=== PATIENT | female | born 1960 | race Caucasian/White ===

== ENCOUNTER 2021-11-30 02:05 | Emergency (ER) | payer BC, SELFPAY ==
[2021-11-30 02:16] VITALS: BP 111/68; PULSE 122; RESP 22; TEMP 36.7; O2SAT 96
--- NOTE | 2021-11-30 02:17 | W.ED.CHESTPA ---
HPI - Chest Pain General: Chief Complaint: Chest Pain Stated Complaint: cp Time Seen by Provider: 11/30/21 02:16 History of Present Illness: Ms. Mcdonald is a 61-year-old lady with significant past medical history of tobaccoism, hypertension, COPD with intermittent oxygen use, and tachyarrhythmia who presents to the emergency department due to chest pain associated with abnormal heart rate. She reports being at her baseline health and getting ready for bed yesterday evening when she went to take her evening medications she noticed chest pain. She had pressure in her chest associated with rapid heartbeat. At the highest heart rates were in the low 200s. She did note mild lightheadedness, shortness of breath, cold sweats, nausea with this. She tried her medications without significant relief. Symptoms upon arrival have mildly improved however she still does have mild chest discomfort. She has had a few episodes in the past however reports arrhythmias started at the end of July of this year. She has had 1 appointment with cardiology here and has a arrhythmia monitor on at this time. Apparently she was contacted and told to come to the emergency department due to the arrhythmia. Of note, apparently the patient was on diltiazem and had the dose increased at her cardiology appointment however she reports that this was correlated with a fairly severe pneumonia. She subsequently was completely taken off Cardizem and placed on losartan by her primary care provider. Onset (ago): hour(s) Prior episodes: Yes Onset: during rest Severity: severe Exacerbating factors: exertion Associated symptoms: Reports diaphoresis, dyspnea, nausea and palpitations Review of Systems General: Reports: 10 or more systems reviewed and unremarkable except in HPI and below Const: Reports: diaphoresis Card: Reports: palpitations Resp: Reports: dyspnea GI: Reports: nausea PFSH ED PFSH: Medical History Chronic headache COPD (chronic obstructive pulmonary disease) Diverticulosis GERD (gastroesophageal reflux disease) HTN (hypertension) Postmenopausal HRT (hormone replacement therapy) Surgical History S/P appendectomy S/P hysterectomy Status post delivery Family History Grandmother Diabetes Sister Migraine Father Hypertension Diabetes Cancer Social History Smoking and tobacco status: current every day smoker (1.5 ppd) Physical Exam Const: COMMON NORMALS: alert GENERAL APPEARANCE: cooperative, well developed and ill appearing (Somewhat) HENMT: COMMON NORMALS: normocephalic and atraumatic HEAD & SCALP: normocephalic and atraumatic Eye: COMMON NORMALS: conjunctivae normal CONJUNCTIVA: Yes conjunctivae normal SCLERA: sclerae normal Neck/C-Spine: COMMON NORMALS: supple GENERAL: Yes trachea midline Resp: COMMON NORMALS: normal respiratory effort EFFORT & INSPECTION: Yes able to speak in complete sentences Cardio: COMMON NORMALS: regular rhythm RATE: tachycardic RHYTHM: regular rhythm GI: COMMON NORMALS: Soft to palpation PALPATION: Yes Soft to palpation and No Tenderness to palpation present (GI) PERCUSSION: normal to percussion Extremity: GENERAL: Yes normal exam except as noted and No edema Neuro: COMMON NORMALS: moves all extremities SENSORIUM/ORIENTATION: Yes alert and No Orientation impaired Psych: COMMON NORMALS: mental status grossly normal and Normal thought process present THOUGHT PROCESS: Normal thought process present Course ED course: - Patient was seen and evaluated by me at bedside - Patient placed on cardiac monitors, IV access obtained - Initial evaluation notable for exam as above - Labs and xrays personally interpreted by me -Aspirin and fluids given. RT treatment given - Labs notable for no significant hematologic abnormality. Metabolic panel notable for mildly elevated creatinine. There is transaminitis of uncertain etiology. Delta troponin is positive. D-dimer elevated. - Imaging notable for no lobar consolidation or pneumothorax on chest x-ray. Given elevated lipase and transaminitis as well as elevated D-dimer CT imaging of chest abdomen and pelvis obtained. CT angio chest negative for pulmonary embolism. CT abdomen pelvis without acute pathology. - Upon serial reexamination after treatment the patient was mildly improved - Based on patient history, evaluation, and testing as interpreted the most likely cause of the patient's condition is NSTEMI - The results of ED evaluation were discussed with the patient including need for admission for NSTEMI. The patient adamantly refused admission despite discussion of risks and benefits. - The patient is oriented to person, place, and time, has the capacity to make decisions regarding the medical care offered. The patient speaks coherently and exhibits no evidence of having an altered level of consciousness or alcohol or drug intoxication to a point that would impair judgment. She responds knowingly to questions about recommended treatment and exhibits goal oriented and logical thought process. She cannot articulates back the risks explained to her including permanent debility, , or worse. She understands that she may return to the emergency department for any reason at any time. - Patient left emergency department with steady gait AGAINST MEDICAL ADVICE. Vital Signs: Vital signs: Vital Signs Temperature 98.0 F 11/30/21 02:16 Pulse Rate 92 11/30/21 06:00 Respiratory Rate 20 H 11/30/21 06:00 Blood Pressure 143/114 11/30/21 06:00 Pulse Oximetry 100 11/30/21 06:00 MDM - Chest Pain Medical Decision Making 61-year-old lady with history of arrhythmia presenting with tachyarrhythmia. Patient found to have NSTEMI of uncertain etiology. It is possible that it was demand ischemia secondary to prolonged tachycardia however other etiologies must be evaluated. Unfortunately, however, the patient left AGAINST MEDICAL ADVICE. Medical Records I reviewed the patient's medical records. Lab Data I reviewed the patient's lab results. : 11/30/21 02:15 11/30/21 02:15 Radiology Impressions Chest X-Ray 11/30/21 02:37 IMPRESSION: No acute cardiopulmonary abnormality. Chest/Abdomen/Pelvis CT 11/30/21 02:52 IMPRESSION: 1. No acute findings. 2. Two 5-6 mm pulmonary nodules are seen. For patients at low risk (minimal or absent history of smoking and of other known risk factors), recommend CT Chest at 3-6 months, then consider CT Chest at 18-24 months. For patients at high risk (history of smoking or of other known risk factors), recommend CT IMPRESSION: No acute findings. COMMENTS: Consistent with the [employer]'s Incidental Findings Committee white paper (J Am Nidia Radiol 2018): Any incidental renal lesion less than 1 cm or classified as too small to characterize, or any incidental cystic renal lesion characterized as simple-appearing, is likely benign. No follow-up imaging is recommended for these lesions per consensus recommendations based on imaging criteria. Laboratory Results WBC 5.7 10^3/uL (4.0-10.0) 11/30/21 02:15 RBC 4.23 10^6/uL (4.1-5.3) 11/30/21 02:15 Hgb 12.1 g/dL (11.5-15.3) 11/30/21 02:15 Hct 40.2 % (37.0-47.0) 11/30/21 02:15 MCV 95.0 fl (81-99) 11/30/21 02:15 MCH 28.6 pg (28.0-34.0) 11/30/21 02:15 MCHC 30.1 g/dL (30.0-36.0) 11/30/21 02:15 RDW 14.6 % (12.1-15.1) 11/30/21 02:15 Plt Count 278 10^3/cmm (130-400) 11/30/21 02:15 MPV 9.7 fL (7.4-10.4) 11/30/21 02:15 Neut % (Auto) 68.1 % 11/30/21 02:15 Lymph % (Auto) 23.2 % 11/30/21 02:15 Christian % (Auto) 6.0 % 11/30/21 02:15 Eos % (Auto) 1.6 % 11/30/21 02:15 Baso % (Auto) 0.7 % 11/30/21 02:15 Neut # (Auto) 3.89 10^3/uL (1.8-7.7) 11/30/21 02:15 Lymph # (Auto) 1.3 10^3/uL (0.8-4.8) 11/30/21 02:15 Christian # (Auto) 0.3 10^3/uL (0.2-0.9) 11/30/21 02:15 Eos # (Auto) 0.1 10^3/uL (0.0-0.8) 11/30/21 02:15 Baso # (Auto) 0.0 10^3/uL (0.0-0.1) 11/30/21 02:15 Nucleated RBC % (auto) 0 % 11/30/21 02:15 Nucleated RBCs # 0.0 /100WBC 11/30/21 02:15 PT 12.20 SECONDS (12.1-14.9) 11/30/21 02:15 INR 0.88 (0.8-1.2) 11/30/21 02:15 APTT 31.7 SECONDS (23.9-36.7) 11/30/21 02:15 D-Dimer 0.67 ug/mIFEU (0-0.59) H 11/30/21 02:15 Sodium 138 mmol/L (136-145) 11/30/21 02:15 Potassium 3.8 mmol/L (3.5-5.1) 11/30/21 02:15 Chloride 101 mmol/L (98-107) 11/30/21 02:15 Carbon Dioxide 24 mmol/L (22-29) 11/30/21 02:15 Anion Gap 16.8 (5-19) 11/30/21 02:15 BUN 13 mg/dL (8-23) 11/30/21 02:15 Creatinine 1.0 mg/dL (0.5-0.9) H 11/30/21 02:15 GFR Calculation 56.0 mL/min (90-130) L 11/30/21 02:15 Glucose 178 mg/dL (65-115) H 11/30/21 02:15 Calculated Osmolality 291 mOsm/kg (285-295) 11/30/21 02:15 Calcium 9.7 mg/dL (8.5-10.5) 11/30/21 02:15 Total Bilirubin 0.2 mg/dL (0.15-1.2) 11/30/21 02:15 AST 62 U/L (0-32) H 11/30/21 02:15 ALT 46 U/L (0-33) H 11/30/21 02:15 Alkaline Phosphatase 132 IU/L (35-105) H 11/30/21 02:15 Troponin T Baseline 28 ng/L (0-10) H 11/30/21 02:15 Troponin T 120 Minute 51.53 ng/L (0-10) H 11/30/21 05:00 Delta Troponin T 23.53 ABS# (0-10) H* 11/30/21 05:00 NT-Pro-B Natriuret Pep 585 pg/mL (0-125) H 11/30/21 02:15 Total Protein 7.2 g/dL (6.6-8.7) 11/30/21 02:15 Albumin 4.2 g/dL (3.5-5.2) 11/30/21 02:15 Globulin 3.0 g/dL (1.3-4.6) 11/30/21 02:15 Lipase 67 U/L (13-60) H 11/30/21 02:15 TSH 4.05 uIU/mL (0.27-4.20) 11/30/21 02:15 Discharge Plan Discharge Patient Disposition: Left Against Medical Advice Clinical Impression: Non-ST elevation (NSTEMI) myocardial infarction, Tachyarrhythmia Condition: Stable Prescriptions: No Action albuterol sulfate [ProAir HFA] 90 mcg/actuation HFA aerosol inhaler 2 puff inhalation Q6H PRN0RF amitriptyline 100 mg tablet 200 mg PO .HS 0RF zpldamsbxb-kbkuvrweznnfz-uxmh 50-325-40 mg tablet 1 tab PO Q6H PRN0RF cholecalciferol (vitamin D3) 25 mcg (1,000 unit) capsule 1,000 unit PO DAILY 0RF clonidine HCl 0.1 mg tablet 0.1 mg PO TID PRN0RF fluticasone propionate [Flonase Allergy Relief] 50 mcg/actuation spray,suspension 1 spray intranasal DAILY 0RF Rx Instructions: administer into each nostril furosemide 40 mg tablet 40 mg PO DAILY 0RF hydrocodone-acetaminophen 5-325 mg tablet 1 tab PO BID PRN0RF Dulera 200-5 mcg/actuation HFA aerosol inhaler 2 puff inhalation BID 0RF pantoprazole 40 mg tablet,delayed release (DR/EC) 40 mg PO BID 0RF promethazine 25 mg tablet 25 mg PO Q6H PRN0RF Nurtec ODT 75 mg tablet,disintegrating 75 mg PO DAILY PRN0RF vitamin B complex [B Complex-Vitamin B12] Tablet 1 tab PO DAILY 0RF zolpidem [Ambien] 10 mg tablet 10 mg PO .HS 0RF aspirin [Adult Low Dose Aspirin] 81 mg tablet,delayed release (DR/EC) 81 mg PO DAILY 0RF losartan 100 mg tablet 100 mg PO DAILY Qty: 90 0RF flecainide 50 mg tablet 50 mg PO Q12H Qty: 60 6RF Referrals: April Haynes DO [Primary Care Provider] - Discharge Diet: Usual diet Discharge Activity: Resume usual activity Activity Restrictions/Additional Instructions: Thank you for visiting the emergency department. You were seen and evaluated for chest pain and abnormal heart rhythm. You are found to have elevation in your troponin which means you are having a heart attack. The exact cause of this heart attack is unclear as discussed. I strongly recommend admission to the hospital for further cardiac evaluation which you are declining. You are choosing to leave AGAINST MEDICAL ADVICE. I have strong concerns that you may suffer permanent debility, , or worse related to your decision. Please contact your physician first thing in the morning. 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 You may return to the emergency department for any reason at any time. Stand Alone Forms: Against Medical Advice Coding Level of Care Code ED Dynamics Ax Solution Architect for Chg Fwd Exam Comprehensive
[2021-11-30 02:20] VITALS: BP 138/72; PULSE 117; RESP 22; O2SAT 92
--- NOTE | 2021-11-30 02:37 | XRR_ITS ---
PROCEDURE INFORMATION: Exam: XR Chest Exam date and time: 11/30/2021 2:46 AM Age: 61 years old Clinical indication: Dyspnea; Sternal or substernal pain; Additional info: Chest pain TECHNIQUE: Imaging protocol: XR of the chest. Views: 1 view. COMPARISON: No relevant prior studies available. FINDINGS: Lungs: Unremarkable. No consolidation. Pleural spaces: Unremarkable. No pleural effusion. No pneumothorax. Heart/Mediastinum: Moderate hiatal hernia. Bones/joints: Unremarkable. XR/XR chest 1V portable [id number] IMPRESSION: No acute cardiopulmonary abnormality.
--- NOTE | 2021-11-30 02:37 | ECG_ITS ---
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 Measurements Intervals [place] Rate: 126 P: 81 [place]: 104 QRS: 93 QRSD: 79 T: 60 QT: 326 QTc: 474 Interpretive Statements SINUS TACHYCARDIA WITH SHORT [place] INTERVAL WITH FREQUENT SUPRAVENTRICULAR PREMATURE COMPLEXES BORDERLINE RIGHT AXIS DEVIATION [QRS AXIS > 90] MODERATE ST DEPRESSION [0.05+ mV ST DEPRESSION] No previous ECG available for comparison Electronically Signed On 11-30-2021 17:14:06 CDT by Eleuterio Guadalupe M.D. [id number] f
[2021-11-30 02:43] LABS: Basophils % 0.7 %; Eosinophils # 0.1 10^3/uL (0.0-0.8); Eosinophils % 1.6 %; Hematocrit 40.2 % (37.0-47.0); Hemoglobin 12.1 g/dL (11.5-15.3); Lymphocytes # 1.3 10^3/uL (0.8-4.8); Lymphocytes % 23.2 %; Mean Corpuscular HGB Conc 30.1 g/dL (30.0-36.0); Mean Corpuscular Hemoglobin 28.6 pg (28.0-34.0); Mean Platelet Volume 9.7 fL (7.4-10.4); Monocytes # 0.3 10^3/uL (0.2-0.9); Neutrophils # 3.89 10^3/uL (1.8-7.7); Neutrophils % 68.1 %; Nucleated Red Blood Cells % 0 %; Platelet Count 278 10^3/cmm (130-400); Red Blood Count 4.23 10^6/uL (4.1-5.3); Red Cell Distribution Width 14.6 % (12.1-15.1); White Blood Count 5.7 10^3/uL (4.0-10.0)
[2021-11-30 02:48] LABS: INR 0.88 (0.8-1.2)
[2021-11-30 02:49] LABS: Partial Thromboplastin Time 31.7 SECONDS (23.9-36.7)
[2021-11-30 02:51] LABS: D Dimer 0.67 ug/mIFEU (0-0.59)
--- NOTE | 2021-11-30 02:52 | CTR_ITS ---
PROCEDURE INFORMATION: Exam: CTA Chest With Contrast Exam date and time: 11/30/2021 3:53 AM Age: 61 years old Clinical indication: Pain and abnormal findings; Abnormal lab test; Elevated lipase; Abdominal pain; Generalized; Abnormal diagnostic tests; Elevated d-dimer; Sternal or substernal pain; Prior surgery; Surgery date: 6+ months; Surgery type: Hyst; Additional info: Chest pain, tachy, elevated ddimer TECHNIQUE: Imaging protocol: Computed tomographic angiography of the chest with contrast. 3D rendering (Not supervised by radiologist): MIP and/or 3D reconstructed images were created by the technologist. Radiation optimization: All CT scans at this facility use at least one of these dose optimization techniques: automated exposure control; mA and/or kV adjustment per patient size (includes targeted exams where dose is matched to clinical indication); or iterative reconstruction. Contrast material: VISI; Contrast volume: 95 ml; Contrast route: INTRAVENOUS (IV); COMPARISON: CR (CHEST, ) 11/30/2021 2:46 AM RADIATION DOSE METRICS: Total DLP (mGy-cm): 1396.04 FINDINGS: Pulmonary arteries: Normal. No pulmonary emboli. Aorta: Unremarkable. No aortic aneurysm. No aortic dissection. Lungs: Moderate centrilobular emphysema. No focal airspace consolidation. There is a 6 mm right lower lobe pulmonary nodule on series 2, image 390. There is a 5 mm subpleural left upper lobe pulmonary nodule on series 2, image 157. Pleural spaces: Unremarkable. No pneumothorax. No pleural effusion. Heart: Heavy coronary artery calcification. Small pericardial effusion. Lymph nodes: Unremarkable. No enlarged lymph nodes. Diaphragm: Moderate hiatal hernia. Bones/joints: Unremarkable. No acute fracture. Soft tissues: Unremarkable. Chest at 3-6 months, then CT Chest at 18-24 months. (Reference: Joo) REFERENCES: Marlenehomary H, et al. Guidelines for Management of Incidental Pulmonary Nodules Detected on CT Images: From the Fleischner Society 2017. Radiology. 2017;284(1):228-243. PROCEDURE INFORMATION: Exam: CT Abdomen And Pelvis With Contrast Exam date and time: 11/30/2021 3:53 AM Age: 61 years old Clinical indication: Pain and abnormal findings; Abnormal lab test; Elevated lipase; Abdominal pain; Generalized; Abnormal diagnostic tests; Elevated d-dimer; Sternal or substernal pain; Prior surgery; Surgery date: 6+ months; Surgery type: Hyst; Additional info: Chest pain, tachy, elevated ddimer TECHNIQUE: Imaging protocol: Computed tomography of the abdomen and pelvis with contrast. Radiation optimization: All CT scans at this facility use at least one of these dose optimization techniques: automated exposure control; mA and/or kV adjustment per patient size (includes targeted exams where dose is matched to clinical indication); or iterative reconstruction. Contrast material: VISI; Contrast volume: 95 ml; Contrast route: INTRAVENOUS (IV); COMPARISON: CR (CHEST, ) 11/30/2021 2:46 AM RADIATION DOSE METRICS: Total DLP (mGy-cm): 1396.04 FINDINGS: Diaphragm: Moderate hiatal hernia. Liver: Focal fatty infiltration along the falciform ligament. Gallbladder and bile ducts: Normal. No calcified stones. No ductal dilation. Pancreas: Normal. No ductal dilation. Spleen: Normal. No splenomegaly. Adrenal glands: Normal. No mass. Kidneys and ureters: Bilateral renal cysts. No hydronephrosis. Stomach and bowel: Colonic diverticulosis without evidence of diverticulitis. No bowel obstruction. Appendix: No evidence of appendicitis. Intraperitoneal space: Unremarkable. No free air. No significant fluid collection. Vasculature: Mild burden of atherosclerotic plaque in the abdominal aorta and branch vessels. No aneurysm. Lymph nodes: Unremarkable. No enlarged lymph nodes. Urinary bladder: Unremarkable as visualized. Reproductive: Hysterectomy. Coarse calcifications in the right adnexa. Bones/joints: Unremarkable. No acute fracture. Soft tissues: Small fat containing periumbilical hernia. Coarse calcifications in the subcutaneous fat overlying the bilateral gluteal regions. CT/CT angio chest w abd pel w con IMPRESSION: 1. No acute findings. 2. Two 5-6 mm pulmonary nodules are seen. For patients at low risk (minimal or absent history of smoking and of other known risk factors), recommend CT Chest at 3-6 months, then consider CT Chest at 18-24 months. For patients at high risk (history of smoking or of other known risk factors), recommend CT IMPRESSION: No acute findings. COMMENTS: Consistent with the [employer]'s Incidental Findings Committee white paper (J Am Nidia Radiol 2018): Any incidental renal lesion less than 1 cm or classified as too small to characterize, or any incidental cystic renal lesion characterized as simple-appearing, is likely benign. No follow-up imaging is recommended for these lesions per consensus recommendations based on imaging criteria.
[2021-11-30 02:57] LABS: Troponin(5th) Baseline 28 ng/L (0-10)
[2021-11-30 03:04] LABS: Alanine Aminotransferase 46 U/L (0-33); Albumin Level 4.2 g/dL (3.5-5.2); Alkaline Phosphatase 132 IU/L (35-105); Anion Gap 16.8 (5-19); Aspartate Amino Transferase 62 U/L (0-32); Blood Urea Nitrogen 13 mg/dL (8-23); Calcium 9.7 mg/dL (8.5-10.5); Carbon Dioxide 24 mmol/L (22-29); Chloride 101 mmol/L (98-107); Glucose 178 mg/dL (65-115); Lipase 67 U/L (13-60); NT Pro B Type Natriuretic Pept 585 pg/mL (0-125); Osmolality Calculated 291 mOsm/kg (285-295); Potassium 3.8 mmol/L (3.5-5.1); Sodium 138 mmol/L (136-145); Thyroid Stimulating Hormone 4.05 uIU/mL (0.27-4.20); Total Bilirubin 0.2 mg/dL (0.15-1.2); Total Protein 7.2 g/dL (6.6-8.7)
[2021-11-30] MEDS: aspirin 81 mg Chew Tablet 324 MG PO (03:17)
[2021-11-30 03:20] VITALS: PULSE 106; RESP 18; O2SAT 94
[2021-11-30 03:24] VITALS: PULSE 106
[2021-11-30] MEDS: iodixanol 320 mg/mL 100mL Btl IV (03:52)
--- NOTE | 2021-11-30 04:37 | ECG_ITS ---
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 Measurements Intervals [place] Rate: 82 P: 75 NE: 130 QRS: 98 QRSD: 85 T: 54 QT: 364 QTc: 427 Interpretive Statements SINUS RHYTHM WITH OCCASIONAL SUPRAVENTRICULAR PREMATURE COMPLEXES BORDERLINE RIGHT AXIS DEVIATION [QRS AXIS > 90] Compared to ECG 11/30/2021 02:15:00 Sinus tachycardia no longer present Short NE interval no longer present ST (T wave) deviation no longer present Electronically Signed On 11-30-2021 17:16:46 CDT by Eleuterio Guadalupe M.D. [id number]
[2021-11-30] MEDS: sodium chloride 0.9% 500 ML 999 ML IV (05:28)
[2021-11-30 05:32] LABS: Troponin 5 2HR 51.53 ng/L (0-10)
[2021-11-30 05:40] LABS: Troponin 5 2HR Delta 23.53 ABS# (0-10)
[2021-11-30 06:00] VITALS: BP 143/114; PULSE 92; RESP 20; O2SAT 100
== END 2021-11-30 05:59 | disposition left against medical advice (07) ==
PROVIDERS: Emergency Provider Emergency Medicine; PCP Family Medicine
DX: I21.4 Non-ST elevation (NSTEMI) myocardial infarction (principal); R00.0 Tachycardia, unspecified; J44.9 Chronic obstructive pulmonary disease, unspecified; I10 Essential (primary) hypertension; Z79.82 Long term (current) use of aspirin; Z53.29 Procedure and treatment not carried out because of patient's decision for other reasons
CPT/HCPCS: 71045; 71275; 74177; 80053; 83690; 83880; 84443; 84484; 85025; 85378; 85610; 85730; 93005; 94640; 99285; J7040; J7611; Q9967

== ENCOUNTER 2022-01-07 08:18 | Outpatient (CLI) | payer BC, SELFPAY ==
--- NOTE | 2022-01-07 08:45 | USCV_ITS ---
Feli Mcdonald Age: 61 Gender: F : 1960 Exam Date: 01/07/2022 09:01 Ordering Phys: Sharri Hinton MD ([email or web address]) Technologist: MERI Exam Location: [facility] Indication: COPD, HTN, CP BP: 140 / 80 HR: 79 Rhythm: Sinus Technical Quality: Adequate MEASUREMENTS (Male / Female) Normal Values 2D ECHO LV Diastolic Diameter PLAX 4.4 cm 4.2 - 5.9 / 3.9 - 5.3 cm LV Systolic Diameter PLAX 3.3 cm IVS Diastolic Thickness 1.2 cm 0.6 - 1.0 / 0.6 - 0.9 cm IVS Systolic Thickness 1.8 cm LVPW Diastolic Thickness 1.1 cm 0.6 - 1.0 / 0.6 - 0.9 cm LVPW Systolic Thickness 1.3 cm LVOT Diameter 2.0 cm LV Ejection Fraction 2D Teich 48.0 % LV Ejection Fraction MOD 2C 58.3 % LV Ejection Fraction 2C AL 59.2 % LA Diameter 3.5 cm RA Width 3.0 cm RA Height 4.6 cm Aorta at Sinotubular Diameter 2.4 cm M-MODE Aortic Annulus Diameter 2.6 cm LA Ao Ratio MM 1.5 MV E Point Septal Separation 0.4 cm DOPPLER AV Peak Velocity 113.0 cm/s LVOT Peak Velocity 84.0 cm/s AV Area Cont Eq vti 2.7 cm squared AV Area Cont Eq pk 2.3 cm squared MV Area PHT 3.7 cm squared Mitral E to A Ratio 0.8 MV E' Velocity 55.5 cm/s Mitral E to MV E' Ratio 13.7 Mitral E to LV E' Lateral Ratio 13.0 Mitral E to LV E' Septal Ratio 14.5 TR Peak Velocity 466.3 cm/s TR Peak Gradient 87.0 mmHg PV Peak Velocity 83.0 cm/s FINDINGS Left Ventricle Normal left ventricular size, systolic function and wall thickness, with no regional wall motion abnormalities. Left ventricular ejection fraction is estimated at 60 %. Normal diastolic function. Right Ventricle Normal right ventricular size and systolic function. Right ventricular systolic pressure 54 mmHg. Right Atrium Normal right atrial size. Left Atrium Mildly increased left atrial size. Mitral Valve Structurally normal mitral valve. No mitral valve stenosis. Trace mitral valve regurgitation. Aortic Valve Structurally normal trileaflet aortic valve. No aortic valve stenosis. No aortic valve regurgitation. Tricuspid Valve Structurally normal tricuspid valve. No tricuspid valve stenosis. Mild tricuspid valve regurgitation. Pulmonic Valve Structurally normal pulmonic valve. No pulmonary valve stenosis. Trace pulmonary valve regurgitation. Pericardium No pericardial effusion. Aorta Normal size aortic root and proximal ascending aorta. IVC Normal IVC dimension with <50% respiratory change of the inferior vena cava. CONCLUSIONS 1. Normal left ventricular size, systolic function and wall thickness, with no regional wall motion abnormalities. Left ventricular ejection fraction is estimated at 60 %. Normal diastolic function. 2. Normal right ventricular size and systolic function. 3. Pulmonary artery pressures moderately increased measured at 54 mmHg. 4. Mild tricuspid valve regurgitation. 5. No prior similar studies to compare. Sharri Hinton MD (Electronically Signed) Final Date: 08 January 2022 10:55 S
== END 2022-01-07 08:19 | disposition home or self-care (01) ==
PROVIDERS: PCP Family Medicine; Visit Provider Internal Medicine Cardiovascular Disease
DX: I49.9 Cardiac arrhythmia, unspecified (principal); R06.02 Shortness of breath; I07.1 Rheumatic tricuspid insufficiency
CPT/HCPCS: C8929